=== PATIENT | female | born 1985 | race African-American/Black ===

== ENCOUNTER 2016-09-25 19:39 | Emergency (ER) | payer OTHER ==
[~2016-09-25] VITALS: Ht 170.2 cm; Wt 95.3 kg
[2016-09-25 20:15] LABS: URINE BILIRUBIN NEGATIVE (Negative); URINE BLOOD NEGATIVE (Negative); URINE COLOR YELLOW; URINE GLUCOSE-RANDOM* NEGATIVE (Negative); URINE KETONES NEGATIVE (Negative); URINE NITRITE NEGATIVE (Negative); URINE PROTEIN (DIPSTICK) NEGATIVE (Negative); URINE UROBILINOGEN 0.2 E.U./dl (0.2-1.0)
[2016-09-25 21:35] VITALS: BP 132/88
== END 2016-09-25 21:36 | disposition home or self-care (01) ==
LOC: ER 19:39
PROVIDERS: Physician Assistant
DX: O20.0 Threatened abortion (principal); Z3A.01 Less than 8 weeks gestation of pregnancy

== ENCOUNTER 2017-01-01 11:39 | Emergency (ER) | payer OTHER | END 2017-01-01 14:16 | disposition home or self-care (01) | LOC: ER 11:39 | DX: O21.9 Vomiting of pregnancy, unspecified (principal); Z3A.20 20 weeks gestation of pregnancy; Z88.1 Allergy status to other antibiotic agents; Z91.041 Radiographic dye allergy status; Z88.2 Allergy status to sulfonamides; Z88.8 Allergy status to other drugs, medicaments and biological substances ==